=== PATIENT | male | born 1950 | race Two or more races ===

== ENCOUNTER 2025-05-31 18:16 | Emergency (ER) | payer MEDICARE, OTHER ==
[~2025-05-31] VITALS: Ht 182.9 cm; Wt 88.9 kg
[2025-05-31] MEDS ORDERED: ACET-2812 PO (21:27)
[2025-05-31] MEDS ORDERED: LIDO30AD10 TP (21:27)
[2025-05-31] MEDS ORDERED: CYCL5TAB PO (21:31)
[2025-05-31 21:41] VITALS: BP 145/89; TEMP 98.2; O2SAT 97
== END 2025-05-31 21:41 | disposition home or self-care (01) ==
LOC: ER 18:54
DX: M54.50 Low back pain, unspecified (principal); M54.2 Cervicalgia; R51.9 Headache, unspecified; Z91.048 Other nonmedicinal substance allergy status; V89.2XXA Person injured in unspecified motor-vehicle accident, traffic, initial encounter; Y93.89 Activity, other specified; Y92.410 Unspecified street and highway as the place of occurrence of the external cause; Y99.8 Other external cause status
CPT/HCPCS: 70450-TC; 72100-TC; 72125-TC